=== PATIENT | male | born 2000 | race Two or more races ===

== ENCOUNTER 2023-04-03 03:56 | Emergency (ER) | payer SELFPAY ==
[2023-04-03 04:08] VITALS: BP 121/62; PULSE 125; RESP 18; TEMP 97.6; BMI 18.4
[2023-04-03] MEDS ORDERED: LACTATED RINGERS SOLUTION 1000 ML INFUS.BAG IV ONE (04:37)
[2023-04-03] MEDS ORDERED: ALPRAZolam 1 MG TABLET PO ONE (05:46)
[2023-04-03] MEDS ORDERED: ALPRAZolam 1 MG TABLET PO PRN (05:46)
[2023-04-03] MEDS ORDERED: ALPRAZolam 0.25 MG TABLET ONE (05:49)
== END 2023-04-03 06:34 | disposition home or self-care (01) ==
LOC: JER 03:56
DX: R25.1 Tremor, unspecified (principal); R20.2 Paresthesia of skin; T78.1XXA Other adverse food reactions, not elsewhere classified, initial encounter
CPT/HCPCS: 82962; 93005; 93010; 99283-25